=== PATIENT | female | born 1975 ===

== ENCOUNTER 2021-01-05 07:45 | Inpatient (IN) | payer OTHER ==
[~2021-01-05] VITALS: Ht 167.6 cm; Wt 77.1 kg
[~2021-01-05 07:45] MED LIST: LEVAQUIN500 MG PO; PNEU16DI2
[2021-01-05] MEDS ORDERED: COZAAR50 MG PO (09:02)
== END 2021-01-11 12:21 | disposition home or self-care (01) | DRG 743 ==
LOC: OB/GYN 01-10 07:00 → O/R 01-10 13:41 → OB/GYN 01-10 21:40
PROVIDERS: ADMIT Obstetrics & Gynecology; ATTEND Obstetrics & Gynecology
PROC: 0UT74ZZ Resection of Bilateral Fallopian Tubes, Percutaneous Endoscopic Approach (ICD-10-PCS; 2021-01-10)
PROC: 0DNW4ZZ Release Peritoneum, Percutaneous Endoscopic Approach (ICD-10-PCS; 2021-01-10)
PROC: 0TJB8ZZ Inspection of Bladder, Via Natural or Artificial Opening Endoscopic (ICD-10-PCS; 2021-01-10)
PROC: 0UT94ZZ Resection of Uterus, Percutaneous Endoscopic Approach (ICD-10-PCS; principal; 2021-01-10 07:00)
DX: N72 Inflammatory disease of cervix uteri (principal); N80.0 Endometriosis of uterus; N99.4 Postprocedural pelvic peritoneal adhesions; N73.6 Female pelvic peritoneal adhesions (postinfective); D25.0 Submucous leiomyoma of uterus; D25.1 Intramural leiomyoma of uterus; N93.9 Abnormal uterine and vaginal bleeding, unspecified; I10 Essential (primary) hypertension; Z86.16 Personal history of COVID-19